=== PATIENT | female | born 1990 | race Hispanic/Latino ===

== ENCOUNTER 2018-03-19 01:01 | Emergency (ER) | payer OTHER ==
[2018-03-19] MEDS ORDERED: ACETAMINOPHEN EXTRA STRENGTH 500 MG TABLET ONE (01:36)
== END 2018-03-19 01:41 | disposition home or self-care (01) ==
LOC: EDH 01:01
DX: K08.89 Other specified disorders of teeth and supporting structures (principal); K02.9 Dental caries, unspecified

== ENCOUNTER 2022-02-23 09:02 | Emergency (ER) | payer OTHER ==
[~2022-02-23] VITALS: Ht 149.9 cm; Wt 81.6 kg
[2022-02-23 09:06] VITALS: BP 117/77
== END 2022-02-23 10:28 | disposition left against medical advice (07) ==
LOC: EDH 09:02
DX: J02.9 Acute pharyngitis, unspecified (principal); Z53.21 Procedure and treatment not carried out due to patient leaving prior to being seen by health care provider
CPT/HCPCS: 87804; 87880